=== PATIENT | male | born 1975 | race African-American/Black ===

== ENCOUNTER 2020-01-02 13:07 | Emergency (ER) | payer OTHER ==
[2020-01-02 13:15] VITALS: BP 131/98
[2020-01-02] MEDS ORDERED: CYCLOBENZAPRINE 10 MG TABLET PO STA (13:24)
--- NOTE | 2020-01-02 13:25 | ED Physician Documentation ---
PD HPI FOCAL NEURO - Stated complaint Stated Complaint: LFT ARM NUMB - Chief complaint Chief Complaint: Neuro - History obtained from History obtained from: Patient - Additional information Additional information: 44-year-old gentleman with history of cervical fusion due to spinal stenosis about 8 years ago. He does not know what level. Over the last 3 to 4 months he has had constant burning pain and feeling like his left arm is asleep radiating from the pinky side of the hand up to the shoulder. He states that he was given muscle relaxers a few months ago that were helpful for a time. Pain was worse last night. Denies headache. No fevers. Review of Systems Constitutional: reports: Reviewed and negative Eyes: reports: Reviewed and negative Nose: reports: Reviewed and negative Throat: reports: Reviewed and negative Cardiac: reports: Reviewed and negative PD PAST MEDICAL HISTORY - Present Medications Home Medications: Ambulatory Orders Medication Instructions Recorded Confirmed Cyclobenzaprine [Flexeril] 10 mg PO TID PRN #20 tablet 01/02/20 predniSONE [Deltasone] 20 mg PO [id number] #21 tab 01/02/20 - Allergies Allergies/Adverse Reactions: Allergies Allergy/AdvReac Type Severity Reaction Status Date / Time No Known Drug Allergies Allergy Verified 01/02/20 13:15 PD ED PE NORMAL - Vitals Vital signs reviewed: Yes - General General: Alert and oriented X 3, No acute distress - Neck Neck: Supple, no meningeal sign - Extremities Extremities: Other (Mildly diminished sensation especially in a C7 and C8 distribution on the left. Arms are nontender. No neck tenderness. 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 In the meantime we will treat with a steroid taper and muscle relaxers. Departure - Departure Disposition: 01 Home, Self Care Clinical Impression: Cervical radiculopathy Condition: Good Record reviewed to determine appropriate education?: Yes Instructions: ED Cervical Radiculopathy Prescriptions: predniSONE [Deltasone] 20 mg PO [id number] #21 tab Cyclobenzaprine [Flexeril] 10 mg PO TID PRN #20 tablet PRN Reason: Spasms Comments: [place] and consider MRI. Return if worsening or if new symptoms develop. Do not drink or drive while taking prescription muscle relaxers.
== END 2020-01-02 13:29 | disposition home or self-care (01) ==
LOC: ED 13:07
DX: M47.22 Other spondylosis with radiculopathy, cervical region (principal); Z98.1 Arthrodesis status
CPT/HCPCS: 99282; 99283; A9270

== ENCOUNTER 2020-02-19 07:50 | Outpatient (CLI) | payer OTHER ==
--- NOTE | 2020-02-19 14:56 | MRI Report ---
PROCEDURE: Cervical Spine W/O INDICATIONS: LUE NUMBESS AND TINGLING, S/P FUSION C4-C6 TECHNIQUE: Noncontrast sagittal T1 spin echo and T2 fast spin echo, sagittal STIR, foraminal oblique sagittal T2 fast spin echo, and axial gradient echo or T2 fast spin echo through the cervical spine. COMPARISON: None. FINDINGS: Image quality: Excellent. Alignment and Curvature: There is anterior fusion at C4-C6, with good anatomic alignment. Bone Marrow: Marrow demonstrates normal overall signal. Spinal Cord: There is increased signal within the intramedullary cord from the level of C4-C6 with mild decrease in size within this portion of the cervical cord. No cerebellar tonsillar herniation. Paraspinous Soft Tissues: No paravertebral masses. Prevertebral soft tissues are normal in thicknes s. Discs: Moderate to severe desiccation is present throughout cervical spine. C2-C3: Minimal disc bulge without spinal stenosis. Minimal to mild right foraminal narrowing with un covertebral hypertrophy. C3-C4: Mild disc bulge with moderate to severe spinal stenosis. Moderate bilateral foraminal narrow ing with uncovertebral hypertrophy. C4-C5: Postsurgical changes are present at this level. There is severe spinal stenosis with canal fl attening. Moderate to severe left and moderate right foraminal narrowing. C5-C6: Postsurgical changes are present. Disc bulge with moderate to severe spinal stenosis . Modera te to severe left and moderate right foraminal narrowing with uncovertebral hypertrophy. C6-C7: Mild disc bulge with moderate to severe spinal stenosis. Moderate to severe left and mild rig ht foraminal narrowing with uncovertebral hypertrophy. C7-T1: Mild disc bulge with mild spinal stenosis. Mild bilateral foraminal narrowing. IMPRESSION: 1. Surgical changes as above. 2. Multilevel spinal stenosis most severe at C5-6 and C6-7 with areas of increased signal as well as canal flattening. Overall appearance is suggestive of myelomalacia given decreased caliber of spinal cord. This could be secondary to previous infection or inflammation. No free surgical images are avai lable for comparison. However, this could be secondary to prior chronic disc osteophyte complexes wit h subsequent stenosis. Reviewed by: Delia Quigley MD on 02/19/2020 2:55 PM PST Approved by: Delia Quigley MD on 02/19/2020 2:55 PM PST Station ID: [id number]
== END 2020-02-19 07:51 | disposition home or self-care (01) ==
LOC: DI 07:50
DX: M48.02 Spinal stenosis, cervical region (principal)
CPT/HCPCS: 72141

== ENCOUNTER 2020-03-18 07:44 | Outpatient (CLI) | payer OTHER ==
--- NOTE | 2020-03-18 09:21 | CT Report ---
PROCEDURE: CERVICAL SPINE WO INDICATIONS: SPINAL STENOSIS, CERVICAL TECHNIQUE: Noncontrast 3 mm thick sections acquired from the skull base to the T4 level. Sagittal and coronal r eformats were then constructed. For radiation dose reduction, the following was used: automated exp osure control, adjustment of mA and/or kV according to patient size. COMPARISON: Correlation is made with prior cervical spine MRI 02/19/2020. FINDINGS: Image quality: Excellent. Bones: No fractures or dislocations. Visualized superior ribs are intact. Anterior fixation hardware is seen at the C4-C5 and C5-C6 levels. No findings of hardware failure or hardware loosening can be seen. At C4-C5, there is moderate disc space narrowing seen. Relatively prominent anterior osteophytes form ation can be seen. Mild posteriorly directed endplate osteophytes are seen at this level. There is at least moderate central canal narrowing seen, as on series 4 image 34. There is at least moderate rig ht-sided and moderate to severe left-sided neuroforaminal narrowing seen at this level. At C5-C6, posteriorly directed endplate osteophytes are seen. There is at least moderate central chantal l narrowing seen at this level, as on series 4 image 39. At least moderate bilateral neuroforaminal n arrowing can be seen. At C6-C7, there is moderate to severe disc space narrowing seen, with bridging anterior osteophytes. Moderate to severe left-sided neuroforaminal narrowing can be seen. Focal degenerative change can also be seen involving the C1-C2 interface anteriorly. There is overall straightening of the normal cervical lordosis. No significant AP alignment abnormal ity can be seen. Soft tissues: Prevertebral soft tissues are normal in thickness. No paravertebral hematomas. No ap ical pneumothoraces. IMPRESSION: Intact hardware at C4-C5 and C5-C6. Degenerative changes are seen, which are worst by CT at C6-C7. Reviewed by: Jono Swift MD on 03/18/2020 8:19 AM [facility] Approved by: Jono Swift MD on 03/18/2020 8:19 AM [facility] Station ID: [id number]
== END 2020-03-18 07:45 | disposition home or self-care (01) ==
LOC: DI 07:44
PROVIDERS: ATTEND Orthopaedic Surgery
DX: M48.02 Spinal stenosis, cervical region (principal); M79.602 Pain in left arm; M47.812 Spondylosis without myelopathy or radiculopathy, cervical region

== ENCOUNTER 2022-05-11 11:23 | Emergency (ER) | payer OTHER ==
[2022-05-11 12:07] LABS: BASOPHILS % (AUTO) 0.7 %; EOSINOPHILS # (AUTO) 0.1 10^3/uL (0.0-0.7); HCT - HEMATOCRIT 46.1 % (42.0-52.0); HGB - HEMOGLOBIN 15.4 g/dL (14.0-18.0); LYMPHOCYTES # (AUTO) 1.6 10^3/uL (1.5-3.5); LYMPHOCYTES % (AUTO) 27.3 %; MEAN CORPUSCULAR HEMOGLOBIN 31.2 pg (27.0-31.0); MEAN CORPUSCULAR HGB CONC 33.4 g/dL (32.0-36.0); MEAN CORPUSCULAR VOLUME 93.3 fL (80.0-94.0); MEAN PLATELET VOLUME 10.2 fL (7.4-11.4); MONOCYTES # (AUTO) 0.5 10^3/uL (0.0-1.0); NEUTROPHILS # (AUTO) 3.7 10^3/uL (1.5-6.6); NEUTROPHILS % (AUTO) 61.3 %; PLT - PLATELET COUNT 234 10^3/uL (130-450); RED BLOOD COUNT 4.94 10^6/uL (4.70-6.10); RED CELL DISTRIBUTION WIDTH 11.9 % (12.0-15.0)
[2022-05-11 12:21] LABS: ALBUMIN 4.4 g/dL (3.2-5.5); ALBUMIN/GLOBULIN RATIO 1.3 (1.0-2.2); BILIRUBIN,TOTAL 0.3 mg/dL (0.2-1.0); CALCIUM 9.7 mg/dL (8.5-10.3); CREATININE 1.3 mg/dL (0.6-1.2); TOTAL PROTEIN 7.7 g/dL (6.7-8.2)
--- NOTE | 2022-05-11 13:42 | ED Physician Documentation ---
PD HPI CHEST PAIN - Stated complaint Stated Complaint: CHEST PX - Chief complaint Chief Complaint: Cardiac - History obtained from History obtained from: Patient - History of Present Illness Timing - onset: Yesterday Timing - duration: Minutes Timing - details: Intermittant Quality: Tightness, Other (feeling of palpitations and racing heart at times.) Location: Substernal Improved by: No: Rest Worsened by: No: Exertion, Inspiration Associated symptoms: Shortness of air, Feeling faint / dizzy, Palpitations Similar symptoms before: Has not had sx before Recently seen: Not recently seen - Additional information Additional information: he had started a new workup supplement and pre-workout 3 days ago. He has photo of the contents. It does contain 100 mg caffeine per tab (he is taking 2 each) and the other supplement no caffiene but has tuarine and guanine, which can give similar side effects sometimes. ECG and labs are normal so I presume is side effect of the new supplements. Review of Systems Constitutional: denies: Fever, Chills Nose: denies: Rhinorrhea / runny nose, Congestion Throat: denies: Sore throat Cardiac: reports: Chest pain / pressure, Palpitations. denies: Pedal edema, Calf pain Respiratory: denies: Cough GI: denies: Abdominal Pain Musculoskeletal: denies: Extremity swelling PD PAST MEDICAL HISTORY - Past Medical History Cardiovascular: None Respiratory: None Endocrine/Autoimmune: None - Present Medications Home Medications: Ambulatory Orders Medication Instructions Recorded Confirmed Cyclobenzaprine [Flexeril] 10 mg PO TID PRN #20 tablet 01/02/20 predniSONE [Deltasone] 20 mg PO [id number] #21 tab 01/02/20 - Allergies Allergies/Adverse Reactions: Allergies Allergy/AdvReac Type Severity Reaction Status Date / Time No Known Drug Allergies Allergy Verified 05/11/22 11:55 - Social History Does the pt smoke?: No Smoking Status: Never smoker PD ED PE NORMAL - Vitals Vital signs reviewed: Yes - General General: Alert and oriented X 3, No acute distress, Well developed/nourished - Neck Neck: Supple, no meningeal sign, No adenopathy, Thyroid normal - Cardiac Cardiac: RRR, No murmur - Respiratory Respiratory: No respiratory distress, Clear bilaterally - Abdomen Abdomen: Soft, Non tender - Derm Derm: Normal color, Warm and dry - Extremities Extremities: No edema, No calf tenderness / cord - Neuro Neuro: Alert and oriented X 3, No motor deficit, Normal speech Results - Vitals Vitals: Vital Signs - 24 hr 05/11/22 14:20 Temperature 36.9 C Heart Rate 90 Respiratory 18 Rate Blood Pressure 139/82 H O2 Saturation 100 Oxygen O2 Source Room air - EKG (time done) 11:51 EKG releavant findings:: EKG personally interpreted by author of this note. Relevant findings are: Rate: Rate (enter#) (57) Rhythm: Sinus bradycardia [place]: Normal Intervals: Normal [place] QRS: Normal Ischemia: Normal ST segments, ST elevation c/w repol. No: ST elevation c/w ischemia, ST depression, T wave inversion - Labs Labs: Laboratory Tests 05/11/22 05/11/22 05/11/22 12:02 12:02 12:02 WBC 6.0 RBC 4.94 Hgb 15.4 Hct 46.1 MCV 93.3 MCH 31.2 H MCHC 33.4 RDW 11.9 L Plt Count 234 MPV 10.2 Neut # (Auto) 3.7 Lymph # (Auto) 1.6 [place] # (Auto) 0.5 Eos # (Auto) 0.1 Baso # (Auto) 0.0 Absolute Nucleated RBC 0.00 Nucleated RBC % 0.0 Sodium 138 Potassium 4.0 Chloride 103 Carbon Dioxide 31 Anion Gap 4.0 L BUN 16 Creatinine 1.3 H Estimated GFR (MDRD) 72 L Glucose 105 H Calcium 9.7 Magnesium Total Bilirubin 0.3 AST 48 H ALT 47 Alkaline Phosphatase 72 Troponin I High Sens 8.7 Total Protein 7.7 Albumin 4.4 Globulin 3.3 Albumin/Globulin Ratio 1.3 Lipase 75 H 05/11/22 12:02 WBC RBC Hgb Hct MCV MCH MCHC RDW Plt Count MPV Neut # (Auto) Lymph # (Auto) [place] # (Auto) Eos # (Auto) Baso # (Auto) Absolute Nucleated RBC Nucleated RBC % Sodium Potassium Chloride Carbon Dioxide Anion Gap BUN Creatinine Estimated GFR (MDRD) Glucose Calcium Magnesium 2.0 Total Bilirubin AST ALT Alkaline Phosphatase Troponin I High Sens Total Protein Albumin Globulin Albumin/Globulin Ratio Lipase - Rads (name of study) chest xray Relevant Findings:: Prelim report reviewed, EMP independent interpretation of test (no acute process), See rad report PD Medical Decision Making - ED course Complexity details: reviewed results Reviewed Lab Results: ECG with early repol c/w his body habitus. CCXr clear. Trop is normal at 8. Potassium and Mag are normal. ED course: he had started a new workup supplement and pre-workout 3 days ago. He has photo of the contents. It does contain 100 mg caffeine per tab (he is taking 2 each) and the other supplement no caffiene but has tuarine and guanine, which can give similar side effects sometimes. ECG and labs are normal so I presume is side effect of the new supplements. Departure - Departure Disposition: Home, Self Care Clinical Impression: Intermittent palpitations Condition: Stable Record reviewed to determine appropriate education?: Yes Instructions: ED Palpitations Follow-Up: MARGARITA ZUNIGA MD [Primary Care Provider] - Comments: Your EKG, chest x-ray, blood tests are normal without any signs of heart muscle injury/heart attack, heart failure, lung abnormalities, pneumonia, electrolyte problems. The description you give sounds like brief irregular heart beats or palpitations. It could be just another irregularity of the heart pumping rather than palpitations but your heart sounds seem normal without any indication of a heart valve abnormality. Presuming palpitations intermittently, this easily could relate to the new or onset of the use of supplements that include caffeine and taurine among other things. These can lead to irregularities of the heart rhythm and blood pressure. I would hold off on the supplements for a few days to a week and see if you no longer have the abnormal feelings. Stay well-hydrated otherwise. If you are feeling back to normal, you could try returning to the supplements at a lower amount as a lot of the caffeine related irregularities are does dependent. This type of palpitations feeling would not be unusual with some of the caffeine-containing supplements like that. Return to her annual follow-up with your primary care if you ever persisting symptoms despite being off of the supplements. In particular would be worrisome if you have feeling of chest pain or shortness of breath lightheadedness or near fainting with exertion or activity. Discharge Date/Time: 05/11/22 14:20
[2022-05-11 14:21] VITALS: BP 139/82
--- NOTE | 2022-05-12 07:07 | XRAY Report ---
PROCEDURE: Chest 1 View X-Ray INDICATIONS: Chest pain TECHNIQUE: One view of the chest was acquired. COMPARISON: None. FINDINGS: Surgical changes and devices: None. Lungs and pleura: No pleural effusions or pneumothorax. Lungs are clear. Mediastinum: Mediastinal contours appear normal. Heart size is normal. Bones and chest wall: No suspicious bony lesions. Overlying soft tissues appear unremarkable. IMPRESSION: No acute cardiopulmonary process. Reviewed by: Joey Merida MD on 05/11/2022 12:25 PM PDT Approved by: Joey Merida MD on 05/11/2022 12:25 PM PDT Station ID: [id number]
== END 2022-05-11 14:20 | disposition home or self-care (01) ==
LOC: ED 11:23
DX: R00.2 Palpitations (principal)
CPT/HCPCS: 36415; 80053; 83690; 83735; 84484; 85025; 93005; 99283; 99284